=== PATIENT | male | born 2000 | race Hispanic/Latino ===

== ENCOUNTER 2021-01-09 15:19 | Emergency (ER) | payer OTHER ==
[~2021-01-09] VITALS: Ht 172.7 cm; Wt 72.6 kg
[~2021-01-09 15:19] MED LIST: HYDROCODONE-ACET5 ML PO; IBUPROFEN400 MG PO
[2021-01-09] MEDS ORDERED: IBUPROFEN 600 MG TAB PO STA (16:18)
== END 2021-01-09 16:45 | disposition home or self-care (01) ==
LOC: ER 15:45
DX: M79.601 Pain in right arm (principal); S51.811A Laceration without foreign body of right forearm, initial encounter; V43.52XA Car driver injured in collision with other type car in traffic accident, initial encounter; Y92.488 Other paved roadways as the place of occurrence of the external cause
CPT/HCPCS: 99283